=== PATIENT | female | born 1995 | race Caucasian/White ===

== ENCOUNTER 2019-08-07 09:16 | Emergency (ER) | payer BC ==
[~2019-08-07] VITALS: Ht 175.3 cm; Wt 122.5 kg
[2019-08-07] MEDS ORDERED: METF-440 PO (09:24)
[2019-08-07] MEDS ORDERED: LEVO100T PO (09:24)
[2019-08-07] MEDS ORDERED: ARIP20TA4 PO (09:24)
[2019-08-07] MEDS ORDERED: VENL75TA4 PO (09:24)
--- NOTE | 2019-08-07 09:30 | NUR ---
Dr Shoemaker at the bedside for MSE.
[2019-08-07] MEDS ORDERED: DEXAMETHASONE SOD PHOSPHATE 10 MG INJ ONE (09:41)
[2019-08-07] MEDS ORDERED: AMOXICILLIN-CLAVUL 875-125MG TABLET ONE (09:41)
[2019-08-07] MEDS ORDERED: KETOROLAC TROMETHAMINE 30 MG INJ ONE (09:41)
[2019-08-07] MEDS ORDERED: AMOXICILLIN-CLAVUL 875-125MG TABLET PO ONE (09:45)
[2019-08-07] MEDS ORDERED: DEXAMETHASONE SOD PHOSPHATE 4 MG INJ IM ONE (09:45)
[2019-08-07] MEDS ORDERED: KETOROLAC TROMETHAMINE 30 MG INJ IM ONE (09:45)
--- NOTE | 2019-08-07 10:01 | NUR ---
Pt states feeling better.
--- NOTE | 2019-08-07 10:30 | NUR ---
Pt able to tolorate po intake. made aware.
[2019-08-07 10:35] VITALS: BP 112/67
--- NOTE | 2019-08-07 10:35 | NUR ---
Patient discharged to home in stable conditon. Written and verbal after care instructions given. Patient verbalizes understanding of instructions.
== END 2019-08-07 10:35 | disposition home or self-care (01) ==
LOC: ER 09:16
DX: J02.9 Acute pharyngitis, unspecified (principal); E03.9 Hypothyroidism, unspecified; F17.200 Nicotine dependence, unspecified, uncomplicated; Z79.899 Other long term (current) drug therapy
CPT/HCPCS: 96372 ×2; 99283; J1100; J1885; A4663

== ENCOUNTER 2019-08-08 00:51 | Emergency (ER) | payer BC ==
[~2019-08-08] VITALS: Ht 175.3 cm; Wt 122.5 kg
[~2019-08-08 00:51] MED LIST: ARIP20TA4 PO; LEVO100T PO; METF-440 PO; VENL75TA4 PO
--- NOTE | 2019-08-08 01:34 | NUR ---
Patient in bed, no acute distress noted. Urine sent to ER Lab at this time.
[2019-08-08] MEDS ORDERED: VENLAFAXINE XR 150 MG CAP.SR.24H PO SCH (01:45)
[2019-08-08] MEDS ORDERED: ONDANSETRON ODT 4 MG TAB.RAPDIS SL ONE (01:45)
[2019-08-08] MEDS ORDERED: ONDANSETRON ODT 4 MG TAB.RAPDIS ONE (01:54)
[2019-08-08] MEDS ORDERED: VENLAFAXINE XR 37.5 MG CAP.SR.24H ONE (01:55)
[2019-08-08 01:58] LABS: *URINE HCG, QUAL NEGATIVE (NEGATIVE)
[2019-08-08] MEDS ORDERED: VENLAFAXINE XR 37.5 MG CAP.SR.24H PO ONE (02:00)
[2019-08-08 02:03] LABS: *AMPHETAMINE, URINE NEGATIVE (NEGATIVE); *BARBITURATE, URINE NEGATIVE (NEGATIVE); *CANNABINOID, URINE NEGATIVE (NEGATIVE); *COCCAINE, URINE NEGATIVE (NEGATIVE); *OPIATE, URINE NEGATIVE (NEGATIVE); *PHENCYCLIDINE SCREEN,URINE NEGATIVE (NEGATIVE)
--- NOTE | 2019-08-08 02:16 | NUR ---
Patient discharged to home in stable conditon. Written and verbal after care instructions given. Patient verbalizes understanding of instructions. Ambulated from ER with stable gait. All belongings with patient.
[2019-08-08 02:18] VITALS: BP 127/82
== END 2019-08-08 02:18 | disposition home or self-care (01) ==
LOC: ER 00:54
DX: R11.0 Nausea (principal); F41.9 Anxiety disorder, unspecified; F15.93 Other stimulant use, unspecified with withdrawal; E03.9 Hypothyroidism, unspecified; F17.290 Nicotine dependence, other tobacco product, uncomplicated; Z79.899 Other long term (current) drug therapy
CPT/HCPCS: 80307; 84703; A4663; Q0162